=== PATIENT | male | born 1980 | race Caucasian/White ===

== ENCOUNTER 2022-07-18 08:39 | Inpatient (IN) | payer BC ==
[2022-07-18] MEDS ORDERED: Albuterol/Ipratropium 3.0-0.5 MG/3 ML Neb Soln ONE (08:43)
[2022-07-18] MEDS ORDERED: Albuterol 0.083% 2.5 MG/3 ML Neb Soln ONE (08:44)
[2022-07-18] MEDS ORDERED: Albuterol/Ipratropium 3.0-0.5 MG/3 ML Neb Soln NEB ONE (08:49)
[2022-07-18] MEDS ORDERED: methylPREDNISolone Sodium Succinate 125 MG/2 ML SDV IVPUSH ONE (08:49)
[2022-07-18] MEDS ORDERED: Albuterol 0.083% 2.5 MG/3 ML Neb Soln NEB ONE (08:51)
[2022-07-18 09:15] LABS: BASOPHILS ABSOLUTE AUTO 0.1 K/uL (0.0-0.1); BASOPHILS PERCENT AUTO 0.3 % (0.0-1.5); EOSINOPHILS ABSOLUTE AUTO 1.3 K/uL (0.0-0.7); EOSINOPHILS PERCENT AUTO 7.1 % (0.0-7.0); HEMATOCRIT 46.4 % (38.0-50.0); HEMOGLOBIN 15.8 g/dL (13.0-17.0); LYMPHOCYTES ABSOLUTE AUTO 2.3 K/uL (0.6-2.4); LYMPHOCYTES PERCENT AUTO 12.3 % (16.0-40.0); MEAN CORPUSCULAR HEMOGLOBIN 28.4 pg (27.0-32.0); MEAN CORPUSCULAR HGB CONC 34.1 g/dL (31.0-37.0); MEAN CORPUSCULAR VOLUME 83.5 fL (80.0-98.0); MONOCYTES ABSOLUTE AUTO 1.3 K/uL (0.0-0.8); MONOCYTES PERCENT AUTO 6.8 % (0.0-15.0); NEUTROPHILS ABSOLUTE AUTO 13.8 K/uL (1.4-5.7); NEUTROPHILS PERCENT AUTO 73.5 % (48.0-80.0); NRBC ABSOLUTE 0 K/uL; PLATELET COUNT,PLT 261 K/uL (150-400); RED BLOOD CELL COUNT 5.56 M/uL (4.50-5.90); WHITE BLOOD CELL COUNT,WBC 18.72 K/uL (4.0-11.0)
[2022-07-18 09:24] LABS: INR 1.11 (0.86-1.11)
[2022-07-18 09:51] LABS: ALBUMIN 4.2 g/dL (3.4-5.0); BILIRUBIN TOTAL 1.1 mg/dL (0.2-1.0); CALCIUM 9.6 mg/dL (8.5-10.1); CARBON DIOXIDE,CO2 25.6 mmol/L (21.0-32.0); CREATININE 1.4 mg/dL (0.8-1.3); EST CRCL DRUG DOSING (CG) 80.48 mL/min; PROTEIN TOTAL,TP 8.2 g/dL (6.4-8.2)
[2022-07-18 13:09] LABS: APPEARANCE,URINE CLEAR; BILIRUBIN,URINE NEGATIVE (NEGATIVE); COLOR,URINE YELLOW; GLUCOSE,URINE NEGATIVE (NEGATIVE); KETONES,URINE NEGATIVE (NEGATIVE); LEUKOCYTE ESTERASE,URINE NEGATIVE (NEGATIVE); NITRITE,URINE NEGATIVE (NEGATIVE); OCCULT BLOOD,URINE TRACE-INTACT (NEGATIVE); PROTEIN,URINE NEGATIVE (NEGATIVE); UROBILINOGEN,URINE 0.2 EU/dL (<2.0)
[2022-07-18 13:18] LABS: AMORPHOUS SEDIMENT,URINE MODERATE (NEGATIVE); BACTERIA,URINE NOT SEEN (NEGATIVE); EPITHELIAL CELLS,URINE RARE (NONE-FEW); WBC,URINE 0-1 (0-5/HPF)
[2022-07-18] MEDS ORDERED: Ondansetron 4 MG/2 ML SDV IVPUSH PRN (13:52)
[2022-07-18] MEDS ORDERED: Magnesium Hydroxide 400 MG/5 ML Susp 30 ML Cup PO PRN (13:52)
[2022-07-18] MEDS ORDERED: Acetaminophen 325 MG Tab PO PRN (13:52)
[2022-07-18] MEDS ORDERED: Ondansetron 4 MG Tab.DIS PO PRN (13:52)
[2022-07-18] MEDS: methylPREDNISolone Sodium Succinate 40 MG/1 ML SDV IVPUSH SCH ×2 (14:40→21:59)
[2022-07-18 17:48] LABS: CORONAVIRUS COVID-19 NAA NEGATIVE (NEGATIVE); INFLUENZA A NAA NEGATIVE (NEGATIVE); INFLUENZA B NAA NEGATIVE (NEGATIVE)
[2022-07-18] MEDS: Albuterol/Ipratropium 3.0-0.5 MG/3 ML Neb Soln NEB SCH ×2 (17:51→21:59)
[2022-07-18] MEDS: Montelukast 10 MG Tab PO SCH (21:59)
[2022-07-18] MEDS: BREZTRI AEROSPHERE INH SCH (22:00)
[2022-07-19] MEDS: Albuterol/Ipratropium 3.0-0.5 MG/3 ML Neb Soln NEB SCH ×4 (01:52→14:47)
[2022-07-19 05:51] LABS: BASOPHILS PERCENT AUTO 0.1 % (0.0-1.5); HEMOGLOBIN 14.5 g/dL (13.0-17.0); LYMPHOCYTES ABSOLUTE AUTO 0.9 K/uL (0.6-2.4); LYMPHOCYTES PERCENT AUTO 5.1 % (16.0-40.0); MEAN CORPUSCULAR HEMOGLOBIN 28.2 pg (27.0-32.0); MEAN CORPUSCULAR HGB CONC 33.7 g/dL (31.0-37.0); MEAN CORPUSCULAR VOLUME 83.5 fL (80.0-98.0); MONOCYTES ABSOLUTE AUTO 0.6 K/uL (0.0-0.8); MONOCYTES PERCENT AUTO 3.6 % (0.0-15.0); NEUTROPHILS ABSOLUTE AUTO 15.8 K/uL (1.4-5.7); NEUTROPHILS PERCENT AUTO 91.2 % (48.0-80.0); NRBC ABSOLUTE 0 K/uL; PLATELET COUNT,PLT 252 K/uL (150-400); RED BLOOD CELL COUNT 5.15 M/uL (4.50-5.90)
[2022-07-19 06:12] LABS: CALCIUM 9.1 mg/dL (8.5-10.1); CARBON DIOXIDE,CO2 24.7 mmol/L (21.0-32.0); CREATININE 1.1 mg/dL (0.8-1.3); EST CRCL DRUG DOSING (CG) 102.42 mL/min; MAGNESIUM 2.2 mg/dL (1.8-2.4); POTASSIUM,K 4.6 mmol/L (3.5-5.1)
[2022-07-19] MEDS: methylPREDNISolone Sodium Succinate 40 MG/1 ML SDV IVPUSH SCH ×3 (06:19→21:01)
[2022-07-19] MEDS ORDERED: Cetirizine 10 MG Tab ONE (06:25)
[2022-07-19] MEDS: Cetirizine 10 MG Tab PO SCH ×2 (06:26→09:14)
[2022-07-19] MEDS: BREZTRI AEROSPHERE INH SCH ×2 (08:48→20:39)
[2022-07-19] MEDS: Pantoprazole 40 MG Tab.CR PO SCH (08:49)
[2022-07-19] MEDS: Albuterol 0.083% 2.5 MG/3 ML Neb Soln NEB PRN ×2 (09:02→14:41)
[2022-07-19] MEDS: Enoxaparin 40 MG/0.4 ML Syringe SUBCUT SCH (09:22)
[2022-07-19] MEDS: Doxycycline 100 MG Cap PO SCH ×2 (12:43→20:39)
[2022-07-19] MEDS: Levalbuterol HCl 1.25 MG/3 ML Neb NEB SCH ×3 (14:41→21:01)
[2022-07-19] MEDS: Montelukast 10 MG Tab PO SCH (20:39)
[2022-07-20] MEDS: Levalbuterol HCl 1.25 MG/3 ML Neb NEB SCH ×6 (02:52→21:32)
[2022-07-20 05:48] LABS: HEMOGLOBIN 14.3 g/dL (13.0-17.0); MEAN CORPUSCULAR HEMOGLOBIN 28.5 pg (27.0-32.0); MEAN CORPUSCULAR VOLUME 83.8 fL (80.0-98.0); NRBC ABSOLUTE 0 K/uL; PLATELET COUNT,PLT 288 K/uL (150-400); RED BLOOD CELL COUNT 5.01 M/uL (4.50-5.90); WHITE BLOOD CELL COUNT,WBC 23.82 K/uL (4.0-11.0)
[2022-07-20 06:06] LABS: CALCIUM 9.3 mg/dL (8.5-10.1); CARBON DIOXIDE,CO2 24.9 mmol/L (21.0-32.0); CREATININE 1.1 mg/dL (0.8-1.3); EST CRCL DRUG DOSING (CG) 102.42 mL/min; MAGNESIUM 2.1 mg/dL (1.8-2.4); POTASSIUM,K 4.1 mmol/L (3.5-5.1)
[2022-07-20] MEDS: methylPREDNISolone Sodium Succinate 40 MG/1 ML SDV IVPUSH SCH ×3 (06:09→21:33)
[2022-07-20 06:59] LABS: LYMPHOCYTES PERCENT MAN 4 % (16.0-40.0); SEG NEUTROPHILS ABSOLUTE MAN 22.2 (1.4-5.7); SEG NEUTROPHILS PERCENT MAN 93 % (48.0-80.0)
[2022-07-20 07:00] LABS: MONOCYTES ABSOLUTE MAN 0.7 (0.0-0.8); MONOCYTES PERCENT MAN 3 % (0.0-15.0)
[2022-07-20] MEDS: Cetirizine 10 MG Tab PO SCH (08:23)
[2022-07-20] MEDS: Enoxaparin 40 MG/0.4 ML Syringe SUBCUT SCH (08:23)
[2022-07-20] MEDS: Pantoprazole 40 MG Tab.CR PO SCH (08:23)
[2022-07-20] MEDS: Doxycycline 100 MG Cap PO SCH ×2 (08:23→20:13)
[2022-07-20] MEDS: BREZTRI AEROSPHERE INH SCH ×2 (08:24→20:13)
[2022-07-20] MEDS ORDERED: Benzocaine/Cetylpyridinium/Menthol Lozenge MUCMEM PRN (08:46)
[2022-07-20] MEDS ORDERED: Benzonatate 100 MG Cap PO PRN (08:46)
[2022-07-20 09:07] LABS: BORDETELLA PARAPERT IS1001 Not Detected (Not Detected)
[2022-07-20] MEDS: guaiFENesin 600 MG Tab.ER PO SCH ×2 (09:36→20:12)
[2022-07-20] MEDS: Phenol 1.4% Oral Spray 177 ML Bottle MUCMEM PRN ×2 (09:36→17:43)
[2022-07-20] MEDS: Famotidine 20 MG Tab PO SCH ×2 (12:24→20:13)
[2022-07-20] MEDS: Montelukast 10 MG Tab PO SCH (20:13)
[2022-07-21] MEDS: Levalbuterol HCl 1.25 MG/3 ML Neb NEB SCH ×2 (01:34→07:37)
[2022-07-21] MEDS: methylPREDNISolone Sodium Succinate 40 MG/1 ML SDV IVPUSH SCH (05:20)
[2022-07-21 05:48] LABS: HEMATOCRIT 41.7 % (38.0-50.0); LYMPHOCYTES ABSOLUTE AUTO 0.8 K/uL (0.6-2.4); LYMPHOCYTES PERCENT AUTO 3.7 % (16.0-40.0); MEAN CORPUSCULAR HEMOGLOBIN 27.9 pg (27.0-32.0); MEAN CORPUSCULAR HGB CONC 33.6 g/dL (31.0-37.0); MEAN CORPUSCULAR VOLUME 83.2 fL (80.0-98.0); MONOCYTES ABSOLUTE AUTO 1.8 K/uL (0.0-0.8); NEUTROPHILS ABSOLUTE AUTO 19.7 K/uL (1.4-5.7); NEUTROPHILS PERCENT AUTO 88.3 % (48.0-80.0); NRBC ABSOLUTE 0 K/uL; PLATELET COUNT,PLT 311 K/uL (150-400); RED BLOOD CELL COUNT 5.01 M/uL (4.50-5.90); WHITE BLOOD CELL COUNT,WBC 22.29 K/uL (4.0-11.0)
[2022-07-21 06:10] LABS: CALCIUM 9.4 mg/dL (8.5-10.1); CARBON DIOXIDE,CO2 24.1 mmol/L (21.0-32.0); EST CRCL DRUG DOSING (CG) 112.67 mL/min; POTASSIUM,K 4.2 mmol/L (3.5-5.1)
[2022-07-21] MEDS: Pantoprazole 40 MG Tab.CR PO SCH (08:03)
[2022-07-21] MEDS: Doxycycline 100 MG Cap PO SCH (08:03)
[2022-07-21] MEDS: Cetirizine 10 MG Tab PO SCH (08:03)
[2022-07-21] MEDS: guaiFENesin 600 MG Tab.ER PO SCH (08:03)
[2022-07-21] MEDS: BREZTRI AEROSPHERE INH SCH (08:03)
[2022-07-21] MEDS: Famotidine 20 MG Tab PO SCH (08:03)
[2022-07-21] MEDS: Enoxaparin 40 MG/0.4 ML Syringe SUBCUT SCH (08:06)
== END 2022-07-21 10:00 | disposition home or self-care (01) | DRG 141 ==
LOC: MW.ED 08:39 → MW.MS 11:49 → OBSVTOIN 11:49 → MW.MS 07-19 13:02
PROVIDERS: ADMIT Internal Medicine; ATTEND Internal Medicine
DX: J45.31 Mild persistent asthma with (acute) exacerbation (principal); J96.01 Acute respiratory failure with hypoxia; K21.9 Gastro-esophageal reflux disease without esophagitis; H91.90 Unspecified hearing loss, unspecified ear; Z20.822 Contact with and (suspected) exposure to COVID-19; D82.4 Hyperimmunoglobulin E [IgE] syndrome; N28.9 Disorder of kidney and ureter, unspecified; Z79.51 Long term (current) use of inhaled steroids; Z79.899 Other long term (current) drug therapy; Z87.891 Personal history of nicotine dependence
CPT/HCPCS: 0240U; 36415; 71045; 71045-26; 80048; 80053; 81001; 83735; 83880; 85025; 85610; 87486; 87581; 87633; 87798; 93005; 93010; 94640; 96372; 96374; 96376; 99222; 99232; 99238; 99284; 99285-25; A9270-GY; G0378; J1650; J2920; J2930; J7612-GY; J7620-GY